=== PATIENT | female | born 1990 | race Caucasian/White ===

== ENCOUNTER 2017-02-16 09:20 | Emergency (ER) | payer BC ==
[2017-02-16 09:30] VITALS: TEMP 98.3; BMI 21.6
--- NOTE | 2017-02-16 09:37 | PDOC ---
History of Present Illness - General History Source: Patient Exam Limitations: No Limitations - History of Present Illness Initial Comments: CHIEF COMPLAINT: 26 y/o afebrile female c/o b/l breast pain. HISTORY OF PRESENT ILLNESS: The patient gave via NVD in October. She states she had 1 episode of mastitis within 1 month of that resolved with antibiotics and she continued to breast feed. She states last week the pain started again. Her PCP put her on 7 days of Augmentin (she in on day 6) and suggested she stop breast feeding so she has been pumping. She states the pain has gotten worse, especially on the right side and now she can't pump on the right side. She has had some bloody mild expressed from her left breast. Last night she had a fever and took ibuprofen. Vital signs on arrival are within normal limits. REVIEW OF SYSTEMS: GENERAL/CONSTITUTIONAL: +fever.. No weakness. No weight change. HEAD, EYES, EARS, NOSE AND THROAT: No change in vision. No ear pain or discharge. No sore throat. CARDIOVASCULAR: No chest pain or shortness of breath. RESPIRATORY: No cough, wheezing, or hemoptysis. GASTROINTESTINAL: No abd pain, nausea, vomiting, diarrhea. GENITOURINARY: No dysuria, frequency, or change in urination. MUSCULOSKELETAL: No joint or muscle swelling or pain. No neck or back pain. SKIN: +tender, red, swollen breasts, right worse than left NEUROLOGIC: No headache, vertigo, loss of consciousness, or loss of sensation. PHYSICAL EXAM: GENERAL: The patient is awake, alert, and fully oriented, in no acute distress. HEAD: Normal with no signs of trauma. EYES: Pupils equal, round and reactive to light, extraocular movements intact, sclera anicteric, conjunctiva clear. BREASTS: b/l breast erythema and warmth with right breast swelling. both breasts are very TTP, right worse than left. No nipple discharge. No alejandrina d' orange. No lymphadenopathy appreciated in b/l tail of barnett. No masses appreciated in b/l breasts. EXTREMITIES: Normal range of motion, no edema. NEUROLOGICAL: Normal speech, normal gait. SKIN: Warm, Dry, normal turgor, no rashes or lesions noted. <Carlotta Rodriguez - Last Filed: 02/16/17 15:29> <Dalila Posey - Last Filed: 02/18/17 11:01> - General Chief Complaint: Wound Stated Complaint: BREASTS INFECTION, BLEEDING Time Seen by Provider: 02/16/17 09:35 Past History - Past Medical History Other medical history: denies - Psycho/Social/Smoking Cessation Hx Suicidal Ideation: No Smoking History: Never smoked Information on smoking cessation initiated: No Hx Alcohol Use: No Drug/Substance Use Hx: No Substance Use Type: None <Carlotta Rodriguez - Last Filed: 02/16/17 15:29> <Dalila Posey - Last Filed: 02/18/17 11:01> - Past Medical History Allergies/Adverse Reactions: Allergies Allergy/AdvReac Type Severity Reaction Status Date / Time No Known Allergies Allergy Verified 02/16/17 09:30 Home Medications: Ambulatory Orders Amoxicillin - [Amoxicillin 875mg Tablet -] 875 mg PO BID 02/16/17 Clindamycin [Cleocin -] 300 mg PO TID #30 capsule 02/16/17 Ibuprofen [Motrin -] 400 mg PO QID 02/16/17 Oxycodone HCl/Acetaminophen [Percocet 5-325 mg Tablet] 1 tab PO Q4H #10 tablet MDD 6 02/16/17 Sulfamethoxazole/Trimethoprim [Bactrim Ds -] 1 tab PO BID #14 tablet 02/16/17 *Physical Exam - Vital Signs Last Vital Signs Temp Pulse Resp BP Pulse Ox 98.3 F 70 18 114/71 98 02/16/17 09:28 02/16/17 09:28 02/16/17 09:28 02/16/17 09:28 02/16/17 09:28 <Carlotta Rodriguez - Last Filed: 02/16/17 15:29> - Vital Signs Last Vital Signs Temp Pulse Resp BP Pulse Ox 98.3 F 96 H 20 135/84 100 02/16/17 09:28 02/16/17 11:37 02/16/17 11:37 02/16/17 11:37 02/16/17 11:37 <Dalila Posey - Last Filed: 02/18/17 11:01> ED Treatment Course - ADDITIONAL ORDERS Additional order review: Laboratory Results 02/16/17 11:08 POC Glucometer [id number] 02/16/17 11:08 POC Glucometer [id number] - Medications Given in the ED: ED Medications Discontinued Medications Generic Name Dose Route Start Last Admin Trade Name Sarmad PRN Reason Stop Dose Admin Clindamycin HCl 300 mg 02/16/17 10:23 02/16/17 10:47 Cleocin - PO 02/16/17 10:24 Not Given ONCE ONE Diphenhydramine HCl 25 mg 02/16/17 11:05 02/16/17 11:40 Benadryl Injection - IVPUSH 02/16/17 11:06 Not Given ONCE ONE Diphenhydramine HCl 50 mg 02/16/17 11:05 02/16/17 11:15 Benadryl Injection - IVPUSH 02/16/17 11:06 50 mg ONCE ONE Administration Epinephrine HCl 0.3 mg 02/16/17 11:18 02/16/17 11:20 Epipen 0.3mg - IM 02/16/17 11:19 0.3 mg ONCE ONE Administration Clindamycin Phosphate 300 mg/ 50 mls @ 100 mls/hr 02/16/17 10:25 02/16/17 10:27 Dextrose IVPB 02/16/17 10:54 100 mls/hr ONCE ONE Administration Methylprednisolone Sodium Succinate 125 mg 02/16/17 11:05 02/16/17 11:15 Solu-Medrol - IVPB 02/16/17 11:06 125 mg ONCE ONE Administration Oxycodone/Acetaminophen 1 combo 02/16/17 10:12 02/16/17 10:27 Percocet 5/325 - PO 02/16/17 10:13 1 combo ONCE ONE Administration <Dalila Posey - Last Filed: 02/18/17 11:01> Medical Decision Making - Medical Decision Making A/P: 26 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 Plan is as follows: 1. Cleocin 2. PO percocet Spoke with the patient's PCP, Dr. Olegario Parikh and he would like her to have an ultrasound of her right breast and possible consult with Dr. Esparza. Gave IV clinda and PO percocet. About 20 minutes after Clinda was completed the patient developed red blotches on her face and chest, her respiratory rate increased and she was shaking. She also reported that her mouth felt dry and her throat felt "weird". Suspect anaphylactic reaction to clinda. Ordered 50mg IV benadryl Ordered 125mg IV solumedrol Ordered subQ epi Ordered IV fluids The patient now appears much better. The rash on her face and anterior chest have resolved. Will send for ultrasound of right breast. Ultrasound Right breast IMPRESSION: Soft tissue edema, consistent with mastitis, without discrete fluid collection seen. Gave the patient and her the results. Will give a dose of PO bactrim and monitor for 30 minutes to ensure no ADRs. The patient's states she has an appointment with her [employer] TRAIN DRIVER scheduled for tomorrow for follow up. Strongly encouraged the patient to continue pumping until tomorrow. I spoke with the pharmacist at [facility] pharmacy and cancelled both the Percocet and Clindamycin prescriptions. I informed him that the patient is anaphylactic to one of them. The patient experienced no ADRs to Bactrim 1 hour after she took the medication. She states she feels better. Will discharge to home with rx for bactrim. THe patient was instructed to return to the ER with any worsening or concerning symptoms. The patient verbalizes understanding of all instructions, has no further questions and is awaiting discharge. <Carlotta Rodriguez - Last Filed: 02/16/17 15:29> - Medical Decision Making 02/16/17 11:03 Called to bedside by RN. Clinda infusion was in progress and patient had just received percocet, developed sudden onset erythematous rash diffusely over face and trunk. Denying any airway symptoms. Will hold clinda (patient has received opioids without reaction in the past), give benadryl and steroids. 02/16/17 11:10 Pt stating she is having sensation in her throat. Will give epinephrine and cont to monitor. 02/16/17 12:05 Pt improved significantly after epinephrine administration. Resting comfortably. Will cont to monitor. <Dalila Posey - Last Filed: 02/18/17 11:01> *DC/Admit/Observation/Transfer <Carlotta Rodriguez - Last Filed: 02/16/17 15:29> - Attestations Physician Attestion: I independently examined and evaluated this patient in conjunction with SUKHDEV Rodriguez, mid-level practitioner. I reviewed the case and agree with the mid- level practitioner's assessment, diagnosis and disposition. See my notes in MDM for additional details of management. <KalpeshDalila - Last Filed: 02/18/17 11:01> Diagnosis at time of Disposition: Mastitis in female - Discharge Dispostion Disposition: HOME Condition at time of disposition: Improved - Prescriptions Prescriptions: Sulfamethoxazole/Trimethoprim [Bactrim Ds -] 1 tab PO BID #14 tablet Clindamycin [Cleocin -] 300 mg PO TID #30 capsule Oxycodone HCl/Acetaminophen [Percocet 5-325 mg Tablet] 1 tab PO Q4H #10 tablet MDD 6 - Referrals Referrals: Nii Rider MD [Staff Physician] - - Patient Instructions Printed Discharge Instructions: DI for Mastitis Additional Instructions: Discharge Instructions: -You have an anaphylactic allergy to Clindamycin; please don't ever take that medication again in the future. -1 prescription has been called to [facility]; please cigar packer and picker and start tomorrow; do not breast feed while taking this medication. -Stop taking the antibiotic prescribed by Dr. Melvin -Continue taking Ibuprofen for pain -Continue pumping your breast milk in order to drain your milk ducts and help with pain -Keep the follow up appointment with your [employer] DRIVER scheduled for tomorrow -Return to the ER with any worsening or concerning symptoms
[2017-02-16] MEDS ORDERED: OXYCODONE/APAP 5/325MG COMBO TABLET PO ONE (10:12)
[2017-02-16] MEDS ORDERED: CLINDAMYCIN HCL 150 MG CAPSULE (FP) PO ONE (10:23)
[2017-02-16] MEDS ORDERED: CLINDAMYCIN IVPB 300 MG in DEXTROSE 5%-WATER - 48 ML IVPB ONE (10:25)
[2017-02-16] MEDS ORDERED: CLINDAMYCIN PHOSPHATE 600 MG/4 ML VIAL ONE (10:26)
[2017-02-16] MEDS ORDERED: OXYCODONE/APAP 5/325MG COMBO TABLET ONE (10:28)
[2017-02-16] MEDS ORDERED: methylPREDNISolone NA SUCC 125 MG/2 ML VIAL ONE ×2 (11:05)
[2017-02-16] MEDS ORDERED: methylPREDNISolone NA SUCC 125 MG/2 ML VIAL IVPB ONE (11:05)
[2017-02-16] MEDS ORDERED: EPINEPHrine/PF 1 MG/1 ML (1:1,000) AMPULE ONE (11:17)
[2017-02-16] MEDS ORDERED: EPINEPHrine 1:1,000 0.3 MG/0.3 ML SYR IM ONE (11:18)
[2017-02-16 13:36] VITALS: BP 121/69; PULSE 106
[2017-02-16] MEDS ORDERED: SULFAMETHOXAZOLE/TRIMETHOPRIM 800MG/160MG D.S. TABLET PO ONE (13:51)
[2017-02-16] MEDS ORDERED: SULFAMETHOXAZOLE/TRIMETHOPRIM 800MG/160MG D.S. TABLET ONE (14:11)
--- NOTE | 2017-02-20 12:39 | EKG ---
Test Reason : Blood Pressure : / mmHG Vent. Rate : 114 BPM Atrial Rate : 114 BPM P-R Int : 140 ms QRS Dur : 080 ms QT Int : 336 ms P-R-T Axes : 053 028 041 degrees QTc Int : 463 ms SINUS TACHYCARDIA NONSPECIFIC T WAVE ABNORMALITY ABNORMAL ECG NO PREVIOUS ECGS AVAILABLE Confirmed by HILARY VELAZQUEZ MD ([id number]) on 02/20/2017 12:38:45 PM Referred By: Confirmed By:HILARY VELAZQUEZ MD
== END 2017-02-16 15:53 | disposition home or self-care (01) ==
LOC: JER 09:20
PROC: 3E023GC Introduction of Other Therapeutic Substance into Muscle, Percutaneous Approach (ICD-10-PCS; principal; 2017-02-16)
PROC: 3E03329 Introduction of Other Anti-infective into Peripheral Vein, Percutaneous Approach (ICD-10-PCS; 2017-02-16)
PROC: 3E0333Z Introduction of Anti-inflammatory into Peripheral Vein, Percutaneous Approach (ICD-10-PCS; 2017-02-16)
DX: N61.0 Mastitis without abscess (principal); T36.8X5A Adverse effect of other systemic antibiotics, initial encounter; Y92.238 Other place in hospital as the place of occurrence of the external cause
CPT/HCPCS: 76641-TC-RT; 93005; 93010; 99281-25